=== PATIENT | male | born 1935 | race Caucasian/White ===

== ENCOUNTER → 2017-01-29 | Outpatient (CLI) | payer OTHER ==
[2015-12-07 19:54] VITALS: BP 204/79
[~2017-01-29] MED LIST: HYDR-971 PO; PRED50TA PO
--- NOTE | 2017-01-29 14:59 | KCIC ---
Two-view orbits dated 01/29/2017. No comparison available. Clinical indication: Evaluate for metallic foreign body of prior to MRI. FINDINGS: 2 views orbits show evidence of prior left frontal craniotomy with suture and placed. No intraorbital foreign body. Paranasal sinuses are grossly clear. No acute bony abnormality. Removable hearing aids are noted. IMPRESSION: 1. No evidence of metallic foreign body. 2. Status post left frontal craniotomy. Electronically signed by: Robbie Marcelo MD (01/29/2017 2:56 PM) [id number]
--- NOTE | 2017-01-29 16:02 | KCIC ---
INDICATION: Chronic right leg pain and right foot numbness for years. TECHNIQUE: Sagittal T1, sagittal T2, sagittal STIR, axial T1, and axial T2 sequences are provided. No comparison is available. FINDINGS: There is 4 mm of anterolisthesis at L4-L5. There is otherwise no malalignment. There is no worrisome marrow lesion. There is no marrow edema. There is disc desiccation diffusely. Conus medullaris is normal in signal intensity and in position. Subcutaneous edema is noted. Probable cyst in the right kidney measures 16 mm. The numbering system assumes 5 lumbar type vertebral bodies. Findings by individual level are as follows: L1-L2: Disc bulge and facet hypertrophy are noted. There is a left subarticular protrusion. There is facet hypertrophy. There is left lateral recess narrowing. L2-L3: There is a diffuse disc bulge and mild facet hypertrophy. There is a left paracentral herniation migrating inferiorly measuring 11 mm transverse, 3 to 4 mm AP, and extending craniocaudal 7 mm. The midline AP diameter of the thecal sac is narrowed to 10 mm, minimal. There is lateral recess narrowing which is mild. There is also mild foraminal narrowing. L3-L4: Disc bulge is eccentric to the left. Facet and ligamentum flavum hypertrophy are noted. There is no canal stenosis. There is left lateral recess narrowing. Disc bulge contacts the left L4 nerve root. Foraminal narrowing is mild. L4-L5: In addition to the anterolisthesis there is unroofing of the disc. There is marked facet and ligamentum flavum hypertrophy. There is canal stenosis with midline AP diameter of the thecal sac narrowed to 10 mm. There is also minimal foraminal narrowing. L5-S1: Facet hypertrophy is noted without canal or foraminal compromise. IMPRESSION: Degenerative changes in the lumbar spine. There is no high-grade canal stenosis. There is left lateral recess narrowing secondary to the herniation at L1-L2. Mild canal stenosis at L2-L3 and L4-L5 is noted. Electronically signed by: Sudeep Banerjee MD (01/29/2017 3:58 PM) [id number]
== END | disposition home or self-care (01) ==
LOC: KCIC MRI 14:13
PROVIDERS: ATTEND Internal Medicine
DX: S05.8X2A Other injuries of left eye and orbit, initial encounter (principal); M51.16 Intervertebral disc disorders with radiculopathy, lumbar region; M48.061 Spinal stenosis, lumbar region without neurogenic claudication; M79.604 Pain in right leg; R20.0 Anesthesia of skin; X58.XXXA Exposure to other specified factors, initial encounter; Y93.89 Activity, other specified; Y92.89 Other specified places as the place of occurrence of the external cause; Y99.8 Other external cause status
CPT/HCPCS: 70030; 72148

== ENCOUNTER → 2020-07-27 | Outpatient (CLI) | payer MEDICARE ==
[2018-11-19 11:00] VITALS: BP 161/68
[~2020-07-27] MED LIST changes: +APIX5TAB PO; +ASPI81TA59 PO; +ATOR20TA58 PO; +CHOL100013 PO; +DILT30TA PO; +FINA5TAB4 PO; +FURO40TA4 PO; +GABA-585 PO; +GABA600T7 PO; +HYDR-3164 PO; -HYDR-971 PO; +LISI10TA16 PO; +METO50TA6 PO; +MULT-658 PO; +POTA20TA4 PO; +RANI150C PO; +TAMS0.4C97 PO; +VIT1TABL32 PO; +VITA1TAB19 PO
--- NOTE | 2020-07-27 14:39 | CARD ---
MR#: [id number] Date of Study: 07/27/2020 Ordering Physician: JIMI TESFAYE, Referring Physician: JIMI TESFAYE, Tech: Clarita Hanson, [facility] APPROVED REPORT EXAM: Two-dimensional and M-mode echocardiogram with Doppler and color Doppler. Other Information Quality : AverageHR: 71bpm Technically limited study due to body habitus. INDICATION Atrial Fibrillation RISK FACTORS Hypertension 2D DIMENSIONS RVDd4.2 (2.9-3.5cm)Left Atrium(2D)4.9 (1.6-4.0cm) IVSd1.4 (0.7-1.1cm)Aortic Root(2D)3.7 (2.0-3.7cm) LVDd5.6 (3.9-5.9cm)LVOT Diameter2.0 (1.8-2.4cm) PWd1.2 (0.7-1.1cm)LVDs4.2 (2.5-4.0cm) FS (%) 23.9 %SV71.5 ml Aortic Valve AoV Peak Attila.253.4cm/sAoV VTI68.6cm AO Peak GR.25.7mmHgLVOT Peak Attila.65.1cm/s LVOT VTI 16.25cmAO Mean GR.16mmHg LINDSAY (VMAX)0.02iy2ICL (VTI)0.77cm2 Mitral Valve MV E Icsmyqfz328.1cm/sMV DECEL [id number] MV A Ffdofzez42.8cm/sMV JJO69ej E/A Ratio3.2MVA (PHT)5.38cm2 TDI E/Lateral E'8.6E/Medial E'8.6 Pulmonary Valve PV Peak [place]77.2cm/sPV Peak Grad.3mmHg Tricuspid Valve TR P. Afychqui328fc/sRAP [id number] TR Peak Gr.50wcMjKCKY86lkHi LEFT VENTRICLE The left ventricle is normal size. There is mild concentric left ventricular hypertrophy. The left ve ntricular systolic function is normal and the ejection fraction is within normal range. The Ejection Fraction is 50-55%. There is normal LV segmental wall motion. RIGHT VENTRICLE The right ventricle is mildly dilated. There is normal right ventricular wall thickness. Systolic fun ction is borderline reduced. ATRIA The left atrium is moderately dilated. The right atrium is moderately dilated. The interatrial septum is intact with no evidence for an atrial septal defect or patent foramen ovale as noted on 2-D or Do ppler imaging. AORTIC VALVE The aortic valve is calcified and displays decreased opening. Doppler and Color Flow revealed trace a ortic regurgitation. Calculated aortic valve area is 1.15 cm2 with maximum pressure gradient of 19 mm Hg and mean pressure gradient of 10 mmHg. Imaging consistent with probable mild aortic stenosis. MITRAL VALVE The mitral valve is normal in structure and function. There is no evidence of mitral valve prolapse. There is no mitral valve stenosis. Doppler and Color-flow revealed trace mitral regurgitation. TRICUSPID VALVE The tricuspid valve is normal in structure and function. Doppler and Color Flow revealed trace tricus pid regurgitation with an estimated PAP of 46 mmHg. There is no tricuspid valve stenosis. PULMONIC VALVE The pulmonic valve is not well visualized. Doppler and Color Flow revealed trace pulmonic valvular re gurgitation. GREAT VESSELS The aortic root is normal in size. The ascending aorta is mildly dilated measuring 3.72 cm. The IVC i s normal in size and collapses >50% with inspiration. PERICARDIAL EFFUSION There is no evidence of significant pericardial effusion. Critical Notification Critical Value: No <Conclusion> The left ventricle is normal size. The left ventricular systolic function is normal and the ejection fraction is within normal range. The Ejection Fraction is 50-55%. There is mild concentric left ventricular hypertrophy. The aortic valve is calcified and displays decreased opening. Doppler and Color Flow revealed trace aortic regurgitation. Calculated aortic valve area is 1.15 cm2 with maximum pressure gradient of 19 mmHg and mean pressure gradient of 10 mmHg. Imaging consistent with probable mild aortic stenosis. Doppler and Color-flow revealed trace mitral regurgitation. Doppler and Color Flow revealed trace tricuspid regurgitation with an estimated PAP of 46 mmHg. The ascending aorta is mildly dilated measuring 3.72 cm. Signed by : Christiano Lee MD Electronically Approved : 07/27/2020 14:38:52
== END ==
LOC: ECHO 09:36
PROVIDERS: ATTEND Internal Medicine Cardiovascular Disease
DX: I35.8 Other nonrheumatic aortic valve disorders (principal); I11.9 Hypertensive heart disease without heart failure; I48.0 Paroxysmal atrial fibrillation
CPT/HCPCS: 93306